=== PATIENT | male | born 1975 | race Caucasian/White ===

== ENCOUNTER 2016-08-26 16:44 | Emergency (ER) | payer OTHER, BC ==
[2016-08-26 16:53] VITALS: BP 129/80; PULSE 62; TEMP 98.3; BMI 33.2
[2016-08-26] MEDS ORDERED: KETOROLAC TROMETHAMINE 60 MG/2 ML VIAL IM ONE (17:43)
[2016-08-26] MEDS ORDERED: KETOROLAC TROMETHAMINE 60 MG/2 ML VIAL ONE (17:45)
--- NOTE | 2016-08-26 17:47 | PDOC ---
History of Present Illness - General Chief Complaint: Pain, Acute Stated Complaint: INJURY Time Seen by Provider: 08/26/16 17:05 History Source: Patient Exam Limitations: No Limitations - History of Present Illness Initial Comments: CHIEF COMPLAINT: 41 y/o afebrile male with left shoulder pain since injury at work yesterday. HISTORY OF PRESENT ILLNESS: The patient states he was pushing something heavy when he left shoulder began to hurt. He states he couldn't sleep last night and can hardly move his left arm. He denies fall onto the affected arm. He took Aleve last night which did help a little bit. Vital signs on arrival are within normal limits. REVIEW OF SYSTEMS: GENERAL/CONSTITUTIONAL: No fever/chills. No weakness. No weight change. MUSCULOSKELETAL: +left shoulder pain. No neck or back pain. SKIN: No rash or easy bruising. NEUROLOGIC: No headache, vertigo, loss of consciousness, or loss of sensation. PHYSICAL EXAM: VITAL_SIGNS: within normal limits GENERAL_APPEARANCE: alert, cooperative, mild obvious discomfort. The patient is holding his left forearm against his chest. MENTAL_STATUS: speech clear, oriented X 3, responds appropriately to questions. NEURO: motor intact and sensory intact in injured extremity. EXTREMITIES: Exquisite TTP of left AC joint. Patient cannot abduct his left arm >90 degrees. He cannot lift his arm up to put on his shirt. No left clavicle TTP or tenting. SKIN: warm, dry, good color. Past History - Past Medical History Allergies/Adverse Reactions: Allergies Allergy/AdvReac Type Severity Reaction Status Date / Time No Known Allergies Allergy Verified 08/26/16 16:52 Home Medications: Ambulatory Orders Ibuprofen 800 mg PO TID #30 tablet 08/26/16 Other medical history: PATIENT DENIES MEDICAL HX - Psycho/Social/Smoking Cessation Hx Suicidal Ideation: No Smoking History: Never smoked Hx Alcohol Use: Yes (OCCASIONALLY) Drug/Substance Use Hx: No *Physical Exam - Vital Signs Last Vital Signs Temp Pulse Resp BP Pulse Ox 98.3 F 62 18 129/80 98 08/26/16 16:50 08/26/16 16:50 08/26/16 16:50 08/26/16 16:50 08/26/16 16:50 Medical Decision Making - Medical Decision Making A/P: 41 y/o male with left rotator cuff injury. The patient was given a sling and IM toradol. The patient was given a referral to an Orthopedic doctor and was sent rx for ibuprofen and percocet. He was informed that percocet can cause drowsiness. Suggested he follow RICE instructions and return to the ER with any worsening or concerning symptoms. The patient verbalizes understanding of all instructions, has no further questions and is awaiting discharge. *DC/Admit/Observation/Transfer Diagnosis at time of Disposition: Rotator cuff (capsule) sprain Qualifiers: Encounter type: initial encounter Laterality: left Qualified Code(s): S43.422A - Sprain of left rotator cuff capsule, initial encounter - Discharge Dispostion Disposition: HOME Condition at time of disposition: Good - Referrals Referrals: STAFF,NOT ON [Primary Care Provider] - Ramakrishna Montesinos MD [Staff Physician] - - Patient Instructions Printed Discharge Instructions: How to Use a Sling, DI for Rotator Cuff Injury , How To Perform RICE (Rest, Ice, Compress, Elevate) Additional Instructions: Discharge Instructions: -Prescriptions were sent to your pharmacy for pain -Percocet may cause drowsiness; do not drive while taking -Follow RICE instructions to help with pain -Use sling for comfort -Walk your hand up the wall hourly to prevent frozen shoulder -Follow up with your doctor and Dr. Montesinos within 1 week -Return to the ER with any worsening or concerning symptoms - Post Discharge Activity Work/School Note: Back to Work
== END 2016-08-26 18:05 | disposition home or self-care (01) ==
LOC: JERFT 16:44
PROC: 3E0233Z Introduction of Anti-inflammatory into Muscle, Percutaneous Approach (ICD-10-PCS; principal; 2016-08-26)
DX: S43.422A Sprain of left rotator cuff capsule, initial encounter (principal); X50.9XXA Other and unspecified overexertion or strenuous movements or postures, initial encounter; Y93.89 Activity, other specified; Y92.89 Other specified places as the place of occurrence of the external cause; Y99.0 Civilian activity done for income or pay
CPT/HCPCS: 99281-25